=== PATIENT | male | born 1950 | race Caucasian/White ===

== ENCOUNTER 2018-02-24 10:05 | Outpatient (RCR) | payer OTHER ==
[2017-12-14 16:09] LABS: CREATININE SERUM 0.84 MG/DL (0.60-1.30)
== END 2018-03-14 | disposition home or self-care (01) ==
LOC: ONC 10:05
PROVIDERS: ATTEND Radiology Radiation Oncology
DX: Z51.0 Encounter for antineoplastic radiation therapy (principal); C61 Malignant neoplasm of prostate
CPT/HCPCS: 36415; 77300; 77301; 77334; 77336; 77338; 77385; 82565; 84153; 84520; 99204

== ENCOUNTER 2018-04-25 14:03 | Outpatient (RCR) | payer OTHER | END 2018-07-24 | disposition home or self-care (01) | LOC: ONC 14:03 | PROVIDERS: ATTEND Radiology Radiation Oncology | DX: C61 Malignant neoplasm of prostate (principal) | CPT/HCPCS: 36415; 84153; 99213 ==

== ENCOUNTER 2020-05-22 13:48 | Emergency (ER) | payer OTHER ==
[~2020-05-22] VITALS: Ht 175.2 cm; Wt 90.3 kg
--- NOTE | 2020-05-22 14:49 | ED Abdominal Pain ---
General Chief Complaint: Abdominal/GI Problems Stated Complaint: HERNIA Nursing Triage Note: Pt c/o "knot" in abdomen for 1-2 weeks that has worsened over the last 4-5 days. Pt describes pain as "excrutiating." Pt's abdomen reddened and hardened area around prior scar from protate surgery. Sepsis Screen: No Definite Risk History of Present Illness Date Seen by Provider: May 22, 2020 Time Seen by Provider: 13:50 Initial Comments 69 year old male presents for eusebia umbilical pain, at surgical site from prostate surgery, and erythema to abdomen. He was evaluated at the [facility] and referred to the ED. Symptoms began 1-2 weeks ago and has gotten worse over the last few days. No other abdominal surgeries. He denies nausea, vomiting, diarrhea. He's had cardiac catheterization in [place] and stent placement he takes Xarelto. Denies history of DM or respiratory issues. Pain is 2-3 unless the area is palpated, then it is 10. 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 Timing/Duration: 1 Week, Getting Worse Severity/Quality: Moderate Location: Periumbilical Radiation: No Radiation Associated Symptoms: Denies Symptoms Allergies and Home Medications Allergies Coded Allergies: No Known Drug Allergies (Unverified , 05/22/20) Home Medications Cephalexin 500 Mg Tablet, 500 MG PO QID Prescribed by: RAINA OQUENDO on 05/22/20 1612 Tramadol HCl 50 Mg Tablet, 50 MG PO Q6H PRN for PAIN Prescribed by: RAINA OQUENDO on 05/22/20 1613 Patient Home Medication List Home Medication List Reviewed: Yes Review of Systems Review of Systems Constitutional: no symptoms reported, see HPI EENTM: No Symptoms Reported, See HPI Gastrointestinal: See HPI, Abdominal Pain, Other (erythema to eusebia-umbilical area) All Other Systems Reviewed Negative Unless Noted: Yes Past Jcvwrnn-Jsdsnh-Wovvuz Hx Past Med/Social Hx: Reviewed Nursing Past Med/Soc Hx Patient Social History Alcohol Use: Occasionally Uses Alcohol Beverage of Choice: Beer (6-15 daily) Recreational Drug Use: No 2nd Hand Smoke Exposure: No Recent Foreign Travel: No Contact w/Someone Who Travel: No Recent Infectious Disease Expo: No Recent Hopitalizations: No Past Medical History Surgeries: Yes Cardiac, Prostatectomy Respiratory: No Cardiac: Yes (ablasion, stents) Atrial Fibrillation Genitourinary: Yes Prostate Problems Gastrointestinal: No Musculoskeletal: No Endocrine: No HEENT: No Cancer: Yes Prostate Did You Recieve Any Treatments: Yes What Type of Treatment Did You: Radiation, Surgical Intervention Psychosocial: No Integumentary: No Physical Exam Vital Signs Vital Signs - First Documented 05/22/20 13:50 Temp 36.5 Pulse 74 Resp 20 B/P (MAP) 126/84 (98) Pulse Ox 97 O2 Delivery Room Air Capillary Refill : Less Than 3 Seconds Height/Weight/BMI Height: '" Weight: lbs. oz. kg; 29.00 BMI Method: General Appearance: WD/WN, no apparent distress HEENT: PERRL/EOMI, normal ENT inspection, TMs normal, pharynx normal Neck: non-tender, full range of motion, supple, normal inspection Respiratory: chest non-tender, lungs clear, normal breath sounds Cardiovascular: normal peripheral pulses, regular rate, rhythm, no murmur Gastrointestinal: normal bowel sounds, soft; No distended; tenderness (at incision site, periumbilical. No obvious hernia. ); No hernia; mass (at incision site) Extremities: normal range of motion, non-tender, normal inspection, no pedal edema, normal capillary refill Neurologic/Psychiatric: no motor/sensory deficits, alert, normal mood/affect, oriented x 3 Skin: warm/dry, other (erythema, abdomen) Lymphatic: no adenopathy Progress/Results/Core Measures Results/Orders Lab Results Laboratory Tests Test 05/22/20 14:25 Range/Units White Blood Count 7.1 4.3-11.0 10^3/uL Red Blood Count 4.44 4.35-5.85 10^6/uL Hemoglobin 12.7 L 13.3-17.7 G/DL Hematocrit 39 L 40-54 % Mean Corpuscular Volume 88 80-99 FL Mean Corpuscular Hemoglobin 29 25-34 PG Mean Corpuscular Hemoglobin Concent 33 32-36 G/DL Red Cell Distribution Width 13.7 10.0-14.5 % Platelet Count 213 130-400 10^3/uL Mean Platelet Volume 9.8 7.4-10.4 FL Neutrophils (%) (Auto) 71 42-75 % Lymphocytes (%) (Auto) 17 12-44 % Monocytes (%) (Auto) 10 0-12 % Eosinophils (%) (Auto) 2 0-10 % Basophils (%) (Auto) 0 0-10 % Neutrophils # (Auto) 5.1 1.8-7.8 X 10^3 Lymphocytes # (Auto) 1.2 1.0-4.0 X 10^3 Monocytes # (Auto) 0.7 0.0-1.0 X 10^3 Eosinophils # (Auto) 0.1 0.0-0.3 10^3/uL Basophils # (Auto) 0.0 0.0-0.1 10^3/uL Prothrombin Time 13.6 12.2-14.7 SEC INR Comment 1.0 0.8-1.4 Activated Partial Thromboplast Time 32 24-35 SEC Urine Color ORANGE Urine Clarity CLEAR Urine pH 5.0 5-9 Urine Specific Valliant >=1.030 1.016-1.022 Urine Protein NEGATIVE NEGATIVE Urine Glucose (UA) NEGATIVE NEGATIVE Urine Ketones NEGATIVE NEGATIVE Urine Nitrite NEGATIVE NEGATIVE Urine Bilirubin NEGATIVE NEGATIVE Urine Urobilinogen 0.2 < = 1.0 MG/DL Urine Leukocyte Esterase NEGATIVE NEGATIVE Urine RBC (Auto) NEGATIVE NEGATIVE Urine RBC NONE /HPF Urine WBC RARE /HPF Urine Squamous Epithelial Cells 0-2 /HPF Urine Crystals PRESENT H /LPF Urine Amorphous Sediment RARE TIFFANIE URATES H /LPF Urine Bacteria NEGATIVE /HPF Urine Casts NONE /LPF Urine Mucus MODERATE H /LPF Urine Culture Indicated NO Sodium Level 139 135-145 MMOL/L Potassium Level 4.1 3.6-5.0 MMOL/L Chloride Level 107 98-107 MMOL/L Carbon Dioxide Level 23 21-32 MMOL/L Anion Gap 9 5-14 MMOL/L Blood Urea Nitrogen 9 7-18 MG/DL Creatinine 0.80 0.60-1.30 MG/DL Estimat Glomerular Filtration Rate > 60 BUN/Creatinine Ratio 11 Glucose Level 90 70-105 MG/DL Calcium Level 8.9 8.5-10.1 MG/DL Corrected Calcium 8.9 8.5-10.1 MG/DL Total Bilirubin 0.9 0.1-1.0 MG/DL Aspartate Amino Transf (AST/SGOT) 17 5-34 U/L Alanine Aminotransferase (ALT/SGPT) 17 0-55 U/L Alkaline Phosphatase 53 40-136 U/L C-Reactive Protein High Sensitivity 6.41 H 0.00-0.50 MG/DL Total Protein 6.9 6.4-8.2 GM/DL Albumin 4.0 3.2-4.5 GM/DL Amylase Level 40 25-125 U/L My Orders Orders - AZRARAINA Ct Abdomen/Pelvis W (05/22/20 14:30) Amylase (05/22/20 14:30) Cbc With Automated Diff (05/22/20 14:30) Comprehensive Metabolic Panel (05/22/20 14:30) Hs C Reactive Protein (05/22/20 14:30) Protime With Inr (05/22/20 14:30) Partial Thromboplastin Time (05/22/20 14:30) Ua Culture If Indicated (05/22/20 14:30) Iohexol Injection (Omnipaque 350 Mg/Ml 1 (05/22/20 15:15) Received Contrast (Hold Metformin- Contr (05/22/20 15:15) Sodium Chloride Flush (Catheter Flush Sy (05/22/20 15:15) Ns (Ivpb) (Sodium Chloride 0.9% Ivpb Bag (05/22/20 15:15) Ekg Tracing (05/22/20 15:51) Morphine Injection (Morphine Injection (05/22/20 15:51) Ondansetron Injection (Zofran Injectio (05/22/20 16:00) Medications Given in ED Current Medications Medications Dose Ordered Sig/Jenifer Route Start Time Stop Time Status Last Admin Dose Admin Iohexol 100 ml ONCE ONCE IV 05/22/20 15:15 05/22/20 15:16 DC 05/22/20 15:39 100 ML Sodium Chloride 10 ml NEEDED PRN IV 05/22/20 15:15 05/22/20 16:27 DC 05/22/20 15:39 10 ML Sodium Chloride 100 ml ONCE ONCE IV 05/22/20 15:15 05/22/20 15:16 DC 05/22/20 15:39 80 ML Vital Signs/I&O 05/22/20 05/22/20 13:50 16:21 Temp 36.5 36.5 Pulse 74 77 Resp 20 20 B/P (MAP) 126/84 (98) 146/99 (98) Pulse Ox 97 98 O2 Delivery Room Air Room Air Blood Pressure Mean: 98 Progress Progress Note : Time: 13:50 Progress Note Patient seen and evaluated, will obtain labs and then plan CT of abdomen with contrast. [address] Arellano, will plan to address cellulitis and then he will follow-up Hernia repair. 1535 discharge instructions and return precautions reviewed with patient and all questions answered. Diagnostic Imaging Diagonstic Imaging: CT Plain Films/CT/US/NM/MRI: abdomen, pelvis Comments NAME: MAR[facility] REC#: [id number] PT STATUS: REG ER : 1950 PHYSICIAN: RAINA OQUENDO ADMIT DATE: 05/22/20/ER Signed Date of Exam:05/22/20 CT ABDOMEN/PELVIS W EXAMINATION: CT Abdomen and Pelvis with intravenous contrast. TECHNIQUE: Multiple contiguous axial images were obtained through the abdomen and pelvis after the uneventful administration of intravenous contrast. All CT scans use one or more of the following dose optimizing techniques: automated exposure control, MA and/or KvP adjustment based on a patient size and exam type, or iterative reconstruction. HISTORY: Knot in the umbilical area for one to two weeks. Redness and pain. COMPARISON: None available. FINDINGS: The heart size is enlarged. Dependent atelectasis is seen in the lung bases. Two periumbilical hernias are visualized on either side of the midline of the abdomen. Fat-containing periumbilical hernia on the left demonstrates internal and surrounding inflammatory changes, which may represent mesenteric ischemia. The right paracentral fat-containing umbilical hernia does not contain inflammatory changes. No loops of bowel are seen within these hernia sacs. The liver, spleen, pancreas, adrenal glands, and kidneys have a normal appearance. There is no pathologically enlarged mesenteric or retroperitoneal adenopathy. The bowel loops are nondilated. The appendix is visualized in the right lower quadrant and has a normal appearance. There is no free fluid or free air. No acute osseous abnormalities. Left total hip arthroplasty is seen. There is calcified aortic and iliac atherosclerotic plaque without aneurysm. The urinary bladder is nondistended. There is no free air, loculated collection, or adenopathy in the pelvis. IMPRESSION: 1. Left paracentral periumbilical hernia with internal and surrounding inflammatory changes, likely representing mesenteric ischemia. No entrapped loops of bowel are seen within this hernia sac. A second periumbilical hernia is seen right of midline without associated inflammatory changes. 2. Cardiomegaly. Dictated by: Dictated on workstation # [id number] Dict: 05/22/20 1544 Trans: 05/22/20 1555 [id number] Interpreted by: ELMER ROBBINS DO Electronically signed by: ELMER ROBBINS DO 05/22/20 1555 Reviewed: Reviewed by Me, Reviewed/Discussed (with Dr. Arellano) Departure Impression Primary Impression: Cellulitis of abdominal wall Additional Impressions: Abdominal wall pain Hernia of anterior abdominal wall Disposition: HOME, SELF-CARE Condition: Improved Departure-Patient Inst. Decision time for Depature: 15:35 Referrals: TAMERA SHANKAR (PCP) Primary Care Physician ABHISHEK ARELLANO DO Patient Instructions: Abdominal Hernia (DC), Cellulitis (Skin Infection), Adult (DC) Add. Discharge Instructions: Activity and diet as tolerated. See Dr. Arellano at 2:00 May 27. Take antibiotic, as prescribed. Use Tylenol for pain or prescription medicine, as prescribed. Call Dr. Arellano, if symptoms worsen. If weekends or evenings, return to ER. Return to the emergency department for any new, urgent health care needs. All discharge instructions reviewed with patient and/or family. Voiced understanding. Scripts Tramadol HCl (Tramadol HCl) 50 Mg Tablet 50 MG PO Q6H PRN for PAIN, #15 TAB 0 Refills Prov: RAINA OQUENDO 05/22/20 Cephalexin (Cephalexin) 500 Mg Tablet 500 MG PO QID, #8 TAB 0 Refills Prov: RAINA OQUENDO 05/22/20 Copy Copies To 1: ABHISHEK ARELLANO AMY ARNP May 22, 2020 14:49
[2020-05-22 14:52] LABS: BASOPHILS % (AUTO) 0 % (0-10); EOSINOPHILS # (AUTO) 0.1 10^3/uL (0.0-0.3); EOSINOPHILS % (AUTO) 2 % (0-10); HEMATOCRIT 39 % (40-54); HEMOGLOBIN 12.7 G/DL (13.3-17.7); LYMPHOCYTES # (AUTO) 1.2 X 10^3 (1.0-4.0); LYMPHOCYTES % (AUTO) 17 % (12-44); MEAN CORPUSCULAR HEMOGLOBIN 29 PG (25-34); MEAN CORPUSCULAR HGB CONC 33 G/DL (32-36); MEAN CORPUSCULAR VOLUME 88 FL (80-99); MEAN PLATELET VOLUME 9.8 FL (7.4-10.4); MONOCYTES # (AUTO) 0.7 X 10^3 (0.0-1.0); MONOCYTES % (AUTO) 10 % (0-12); NEUTROPHILS # (AUTO) 5.1 X 10^3 (1.8-7.8); NEUTROPHILS % (AUTO) 71 % (42-75); PLATELET COUNT 213 10^3/uL (130-400); RED CELL DISTRIBUTION WIDTH 13.7 % (10.0-14.5); WHITE BLOOD COUNT 7.1 10^3/uL (4.3-11.0)
[2020-05-22 14:56] LABS: CHLORIDE 107 MMOL/L (98-107); POTASSIUM 4.1 MMOL/L (3.6-5.0); SODIUM 139 MMOL/L (135-145)
[2020-05-22 14:57] LABS: AMYLASE 40 U/L (25-125)
[2020-05-22 14:58] LABS: CALCIUM 8.9 MG/DL (8.5-10.1)
[2020-05-22 14:59] LABS: BILIRUBIN,URINE NEGATIVE (NEGATIVE); CLARITY,URINE CLEAR; COLOR,URINE ORANGE; GLUCOSE 90 MG/DL (70-105); GLUCOSE, URINE (UA) NEGATIVE (NEGATIVE); KETONES,URINE NEGATIVE (NEGATIVE); LEUKOCYTE ESTERASE ,URINE NEGATIVE (NEGATIVE); NITRITE,URINE NEGATIVE (NEGATIVE); PROTEIN,URINE NEGATIVE (NEGATIVE); TOTAL PROTEIN 6.9 GM/DL (6.4-8.2)
[2020-05-22 15:00] LABS: CARBON DIOXIDE 23 MMOL/L (21-32)
[2020-05-22 15:01] LABS: BILIRUBIN,TOTAL 0.9 MG/DL (0.1-1.0)
[2020-05-22 15:02] LABS: ALKALINE PHOSPHATASE 53 U/L (40-136)
[2020-05-22 15:03] LABS: GFR ESTIMATED > 60
[2020-05-22 15:04] LABS: BUN/CREATININE RATIO 11
[2020-05-22 15:05] LABS: ALANINE AMINOTRANSFERASE 17 U/L (0-55); PROTHROMBIN TIME PATIENT 13.6 SEC (12.2-14.7)
[2020-05-22] MEDS ORDERED: NS 100 ML (IVPB) BAG IV ONE (15:15)
[2020-05-22] MEDS ORDERED: HOLD METFORMIN - RECEIVED CONTRAST 20 ML VIAL IV SCH (15:15)
[2020-05-22] MEDS ORDERED: CATHETER FLUSH 10 ML SYR IV PRN (15:15)
[2020-05-22] MEDS ORDERED: IOHEXOL 350 MG/ML 100 ML (OMNIPAQUE 350) VIAL IV ONE (15:15)
--- NOTE | 2020-05-22 15:17 | NUR ---
Pt sleeping comfortably in bed at this time.
[2020-05-22 15:26] LABS: AMORPHOUS SEDIMENT,UR RARE AMOR URATES /LPF; BACTERIA,URINE NEGATIVE /HPF; SQUAMOUS EPITHELIAL CELL,UR 0-2 /HPF; WBC,URINE RARE /HPF
[2020-05-22] MEDS ORDERED: morphine INJ 10 MG/ML 1ML (SYR OR VIAL) IVP STA (15:51)
--- NOTE | 2020-05-22 15:52 | Diagnostic Imaging Report ---
EXAMINATION: CT Abdomen and Pelvis with intravenous contrast. TECHNIQUE: Multiple contiguous axial images were obtained through the abdomen and pelvis after the uneventful administration of intravenous contrast. All CT scans use one or more of the following dose optimizing techniques: automated exposure control, MA and/or KvP adjustment based on a patient size and exam type, or iterative reconstruction. HISTORY: Knot in the umbilical area for one to two weeks. Redness and pain. COMPARISON: None available. FINDINGS: The heart size is enlarged. Dependent atelectasis is seen in the lung bases. Two periumbilical hernias are visualized on either side of the midline of the abdomen. Fat-containing periumbilical hernia on the left demonstrates internal and surrounding inflammatory changes, which may represent mesenteric ischemia. The right paracentral fat-containing umbilical hernia does not contain inflammatory changes. No loops of bowel are seen within these hernia sacs. The liver, spleen, pancreas, adrenal glands, and kidneys have a normal appearance. There is no pathologically enlarged mesenteric or retroperitoneal adenopathy. The bowel loops are nondilated. The appendix is visualized in the right lower quadrant and has a normal appearance. There is no free fluid or free air. No acute osseous abnormalities. Left total hip arthroplasty is seen. There is calcified aortic and iliac atherosclerotic plaque without aneurysm. The urinary bladder is nondistended. There is no free air, loculated collection, or adenopathy in the pelvis. IMPRESSION: 1. Left paracentral periumbilical hernia with internal and surrounding inflammatory changes, likely representing mesenteric ischemia. No entrapped loops of bowel are seen within this hernia sac. A second periumbilical hernia is seen right of midline without associated inflammatory changes. 2. Cardiomegaly. Dictated by: Dictated on workstation # [id number]
[2020-05-22] MEDS ORDERED: ONDANSETRON 4 MG/2 ML (SDV) Z0FRAN IVP ONE (16:00)
[2020-05-22] MEDS ORDERED: CEPH500T PO (16:12)
[2020-05-22] MEDS ORDERED: TRM50T PO (16:12)
[2020-05-22 16:21] VITALS: BP 146/99
== END 2020-05-22 16:21 | disposition home or self-care (01) ==
LOC: EDUNIT# 13:48 → ER 13:49
DX: L03.311 Cellulitis of abdominal wall (principal); K42.9 Umbilical hernia without obstruction or gangrene; I48.91 Unspecified atrial fibrillation; Z95.5 Presence of coronary angioplasty implant and graft; Z79.01 Long term (current) use of anticoagulants; Z85.46 Personal history of malignant neoplasm of prostate
CPT/HCPCS: 36415; 74177; 80053; 81000; 82150; 85025; 85610; 85730; 86141

== ENCOUNTER 2020-10-20 05:34 | Outpatient (RCR) | payer OTHER ==
[~2020-10-20] VITALS: Ht 175.3 cm; Wt 92.3 kg
[~2020-10-20 05:34] MED LIST changes: -FAMO-119 PO
[2020-10-21] MEDS ORDERED: FAMO-119 PO (14:58)
== END 2020-10-20 09:56 | disposition home or self-care (01) ==
LOC: PREOP 05:34
PROVIDERS: ATTEND Surgery
DX: Z01.818 Encounter for other preprocedural examination (principal)

== ENCOUNTER → 2020-10-20 | Outpatient (CLI) | payer OTHER ==
[~2020-10-20] MED LIST: ASPI-999 PO; ATOR40TA70 PO; CARV25TA PO; CEPH500T PO; CITA40TA11 PO; DRON400T2 PO; FAMO-119 PO; FOLI1TAB24 PO; LEVO75CA5 PO; MULT-1104 PO; NF-METHI10 PO; OMG1KC PO; PANT40TA52 PO; PRAZ1CAP2 PO; RIVA20TA PO; THIA100T68 PO; TRM50T PO
== END ==
LOC: LAB FS 10:50
PROVIDERS: ATTEND Surgery
DX: Z01.812 Encounter for preprocedural laboratory examination (principal); Z20.828 Contact with and (suspected) exposure to other viral communicable diseases
CPT/HCPCS: 87635

== ENCOUNTER 2020-10-21 13:51 | Emergency (ER) | payer OTHER ==
[~2020-10-21] VITALS: Ht 175.3 cm; Wt 92.5 kg
--- NOTE | 2020-10-21 14:18 | Diagnostic Imaging Report ---
INDICATION: Chest pain. FINDINGS: Lungs are clear. No infiltrate, effusion, or pneumothorax. IMPRESSION: No acute-appearing abnormality. Dictated by: Dictated on workstation # [id number]
[2020-10-21] MEDS ORDERED: ASPIRIN 81 MG CHEW (CHILDREN'S ASA) ONE (14:20)
[2020-10-21] MEDS ORDERED: FAMOTIDINE 20MG/2ML IV (PEPCID) ONE (14:21)
--- NOTE | 2020-10-21 14:21 | ED Cardiac General ---
History of Present Illness General Chief Complaint: Chest Pain Stated Complaint: CHEST PAIN;SOB Nursing Triage Note: Patient reports sternal/substernal chest pain for 5 days. He describes the pain as burning, rates his pain 4/10 right now at rest, 8/10 at the worst. He reports he has had two previous heart attacks, states his first heart attack felt very similar to the pain he is having now. He states he took antacids at home which did not relieve his pain. He states he had stents placed with his previous heart attacks. History of Present Illness Date Seen by Provider: Oct 21, 2020 Time Seen by Provider: 14:10 Initial Comments 69-year-old male presents with chest pain described as burning in the lower center of his chest for the past 5 days continuously. States he has a history of coronary artery disease with 2 stents (performed at [facility]), last one has been a couple years ago. He states that this feels like the pain that he had when he had a heart attack, however he has not taken the nitroglycerin. He also has a history of GERD for which he takes "when necessary" Protonix, but this is not provided him any relief. Denies any recent illness, cough, fever or chills. Intermittent shortness of air with exertion. Chest burning sensation is worse with activities and also worse when laying down at night. Has not taken an aspirin today. Asked him why....if he thought this was similar burning to when he had a heart attack in the past he chose not to: 1- take his nitroglycerin or 2- seek emergent care. He states, "because I just thought it would go away" Allergies and Home Medications Allergies Coded Allergies: No Known Drug Allergies (Unverified , 05/22/20) Home Medications Aspirin 81 Mg Tab.chew, 81 MG PO DAILY, (Reported) Atorvastatin Calcium 40 Mg Tablet, 20 MG PO HS, (Reported) Carvedilol 25 Mg Tablet, 12.5 MG PO BID, (Reported) Citalopram Hydrobromide 40 Mg Tablet, 40 MG PO DAILY, (Reported) Dronedarone HCl 400 Mg Tablet, 400 MG PO DAILY, (Reported) Famotidine 20 Mg Tablet, 20 MG PO qhs Prescribed by: MARCELLUS APARICIO on 10/21/20 1458 Folic Acid 1 Mg Tablet, 1 MG PO DAILY, (Reported) Levothyroxine Sodium Unknown Strength Capsule, 0.5 TAB PO DAILY, (Reported) Methimazole 10 Mg Tab, 10 MG PO DAILY, (Reported) Multivit-Min/Folic/Vit K/Lycop 1 Each Tablet, 1 EACH PO DAILY, (Reported) Nutley 3 Polyunsat Fatty Acids 1,000 Mg Cap, 1,000 MG PO DAILY, (Reported) Pantoprazole Sodium 40 Mg Tablet.dr, 40 MG PO DAILY, (Reported) Prazosin HCl 1 Mg Capsule, 1 MG PO TID, (Reported) Rivaroxaban 20 Mg Tablet, 20 MG PO DAILY@1800, (Reported) Thiamine Mononitrate 100 Mg Tablet, 100 MG PO DAILY, (Reported) Patient Home Medication List Home Medication List Reviewed: Yes Review of Systems Review of Systems Constitutional: No fever, No malaise, No weakness EENTM: No Symptoms Reported Respiratory: Denies Cough; SOA With Exertion; Denies SOA at Rest Cardiovascular: Chest Pain ("Burning"); Denies Edema, Denies Lightheadedness, Denies Palpitations, Denies Syncope Gastrointestinal: Denies Abdomen Distended, Denies Abdominal Pain, Denies Diarr hea, Denies Nausea, Denies Poor Appetite, Denies Vomiting Musculoskeletal: No back pain, No joint pain Skin: No change in color, No lesions, No rash Psychiatric/Neurological: Denies Headache, Denies Numbness, Denies Paresthesia Past Ilgdkzc-Gefhjp-Ptrnmv Hx Past Med/Social Hx: Reviewed Nursing Past Med/Soc Hx Patient Social History Alcohol Use: Denies Use Number of Drinks Today: AA Alcohol Beverage of Choice: Beer Recreational Drug Use: No Smoking Status: Never a Smoker 2nd Hand Smoke Exposure: No Recent Foreign Travel: No Contact w/Someone Who Travel: No Recent Infectious Disease Expo: No Recent Hopitalizations: No Physical Abuse: No Sexual Abuse: No Mistreated: No Fear: No Seasonal Allergies Seasonal Allergies: No Past Medical History Surgeries: Yes (stents x3, heart ablation, L total hip) Cardiac, Prostatectomy Respiratory: No Cardiac: Yes (ablasion, stents) Atrial Fibrillation, Hypertension Neurological: No Genitourinary: Yes Prostate Problems Gastrointestinal: Yes Abdominal Hernia Musculoskeletal: No Endocrine: Yes Hypothyroidsim HEENT: No Cancer: Yes Prostate Did You Recieve Any Treatments: Yes What Type of Treatment Did You: Radiation, Surgical Intervention Psychosocial: No Integumentary: No Blood Disorders: No Physical Exam Vital Signs Vital Signs - First Documented 10/21/20 13:58 Temp 37.3 Pulse 87 Resp 19 B/P (MAP) 135/71 (92) Pulse Ox 96 O2 Delivery Room Air Capillary Refill : Less Than 3 Seconds Height, Weight, BMI Height: '" Weight: lbs. oz. kg; 30.00 BMI Method: General Appearance: No Apparent Distress, WD/WN HEENT: PERRL/EOMI, Normal ENT Inspection Neck: Normal Inspection, Non Tender, Supple Respiratory: Chest Non Tender, Lungs Clear, Normal Breath Sounds, No Accessory Muscle Use, No Respiratory Distress Cardiovascular: Regular Rate, Rhythm, No Edema, No Gallop, No JVD, No Murmur, Normal Peripheral Pulses Gastrointestinal: Normal Bowel Sounds, No Organomegaly, No Pulsatile Mass, Non Tender, Soft Extremity: Normal Capillary Refill, Normal Inspection, Normal Range of Motion, Non Tender Neurologic/Psychiatric: Alert, Oriented x3, No Motor/Sensory Deficits, Normal Mood/Affect Skin: Normal Color, Warm/Dry Progress/Results/Core Measures Results/Orders Lab Results Laboratory Tests Test 10/21/20 13:55 Range/Units White Blood Count 5.6 4.3-11.0 10^3/uL Red Blood Count 2.46 L 4.35-5.85 10^6/uL Hemoglobin 7.1 L 13.3-17.7 G/DL Hematocrit 22 L 40-54 % Mean Corpuscular Volume 89 80-99 FL Mean Corpuscular Hemoglobin 29 25-34 PG Mean Corpuscular Hemoglobin Concent 32 32-36 G/DL Red Cell Distribution Width 15.0 H 10.0-14.5 % Platelet Count 225 130-400 10^3/uL Mean Platelet Volume 9.8 7.4-10.4 FL Immature Granulocyte % (Auto) 0 % Neutrophils (%) (Auto) 71 42-75 % Lymphocytes (%) (Auto) 19 12-44 % Monocytes (%) (Auto) 8 0-12 % Eosinophils (%) (Auto) 2 0-10 % Basophils (%) (Auto) 0 0-10 % Neutrophils # (Auto) 4.0 1.8-7.8 X 10^3 Lymphocytes # (Auto) 1.0 1.0-4.0 X 10^3 Monocytes # (Auto) 0.4 0.0-1.0 X 10^3 Eosinophils # (Auto) 0.1 0.0-0.3 10^3/uL Basophils # (Auto) 0.0 0.0-0.1 10^3/uL Immature Granulocyte # (Auto) 0.0 0.0-0.1 10^3/uL Sodium Level 142 135-145 MMOL/L Potassium Level 4.1 3.6-5.0 MMOL/L Chloride Level 110 H 98-107 MMOL/L Carbon Dioxide Level 21 21-32 MMOL/L Anion Gap 11 5-14 MMOL/L Blood Urea Nitrogen 10 7-18 MG/DL Creatinine 0.87 0.60-1.30 MG/DL Estimat Glomerular Filtration Rate > 60 BUN/Creatinine Ratio 11 Glucose Level 100 70-105 MG/DL Calcium Level 8.4 L 8.5-10.1 MG/DL Corrected Calcium 8.6 8.5-10.1 MG/DL Total Bilirubin 0.4 0.1-1.0 MG/DL Aspartate Amino Transf (AST/SGOT) 19 5-34 U/L Alanine Aminotransferase (ALT/SGPT) 20 0-55 U/L Alkaline Phosphatase 48 40-136 U/L Troponin I < 0.30 <0.30 NG/ML Total Protein 6.1 L 6.4-8.2 GM/DL Albumin 3.8 3.2-4.5 GM/DL My Orders Orders - ROVENSTINE,MARCELLUS L DO Ed Iv/Invasive Line Start (10/21/20 13:59) Chest 1 View Ap/Pa Only (10/21/20 13:59) Ekg Tracing (10/21/20 13:59) Troponin I Fs (10/21/20 13:59) Cbc With Automated Diff (10/21/20 13:59) Comprehensive Metabolic Panel (10/21/20 13:59) Aspirin Chewable Tablet (Baby Aspirin Ch (10/21/20 14:30) Famotidine Injection (Pepcid Injection) (10/21/20 14:30) Aspirin Chewable Tablet (Baby Aspirin Ch (10/21/20 14:20) Famotidine Injection (Pepcid Injection) (10/21/20 14:21) Lidocaine 2% Viscous 15 Ml (Xylocaine Vi (10/21/20 15:00) Antacid Suspension (Mylanta Suspension (10/21/20 15:00) Medications Given in ED Current Medications Medications Dose Ordered Sig/Jenifer Route Start Time Stop Time Status Last Admin Dose Admin Al Hydrox/Mg Hydrox/Simethicone 30 ml ONCE ONCE PO 10/21/20 15:00 10/21/20 15:01 DC 10/21/20 15:01 30 ML Aspirin 324 mg ONCE ONCE PO 10/21/20 14:30 10/21/20 14:36 DC 10/21/20 14:26 324 MG Famotidine 20 mg ONCE ONCE IVP 10/21/20 14:30 10/21/20 14:36 DC 10/21/20 14:25 20 MG Lidocaine HCl 5 ml ONCE ONCE PO 10/21/20 15:00 10/21/20 15:01 DC 10/21/20 15:01 5 ML Vital Signs/I&O 10/21/20 13:58 Temp 37.3 Pulse 87 Resp 19 B/P (MAP) 135/71 (92) Pulse Ox 96 O2 Delivery Room Air Blood Pressure Mean: 92 Initial ECG Impression Date: Oct 21, 2020 Initial ECG Impression Time: 15:00 Initial ECG Rate: 80 Initial ECG Rhythm: Normal Sinus Initial ECG Intervals: Normal Initial ECG Impression: Normal, Nonspecific Changes Initial ECG Comparisson: No Previous ECG Available Comment no acute changes Diagnostic Imaging Diagonstic Imaging: Xray Comments Date of Exam:10/21/20 CHEST 1 VIEW AP/PA ONLY INDICATION: Chest pain. FINDINGS: Lungs are clear. No infiltrate, effusion, or pneumothorax. IMPRESSION: No acute-appearing abnormality. Dictated on workstation # [id number] Dict: 10/21/20 1416 Trans: 10/21/20 1418 [id number] Interpreted by: TERRANCE BAILEY Electronically signed by: Departure Impression Primary Impression: Chest pain Qualified Codes: R07.9 - Chest pain, unspecified Additional Impression: GERD (gastroesophageal reflux disease) Qualified Codes: K21.9 - Gastro-esophageal reflux disease without esophagiti s Disposition: HOME, SELF-CARE Condition: Improved Departure-Patient Inst. Decision time for Depature: 14:56 Referrals: TAMERA SHANKAR (PCP) Primary Care Physician Patient Instructions: Chest Pain (DC), Acid Reflux, Adult and Adolescent ED Add. Discharge Instructions: Call your primary doctor to arrange for a follow up evaluation in 2 to 3 days, ER sooner if worse. You are advised to cut down on your alcohol intake. Take your Protonix every morning before breakfast and start the prescription for Pepcid at bedtime. All discharge instructions reviewed with patient and/or family. Voiced understanding. Scripts Famotidine (Pepcid) 20 Mg Tablet 20 MG PO qhs, #30 TAB Prov: MARCELLUS APARICIO DO 10/21/20 MARCELLUS APARICIO DO Oct 21, 2020 14:21
[2020-10-21] MEDS ORDERED: FAMOTIDINE 20MG/2ML IV (PEPCID) IVP ONE (14:30)
[2020-10-21] MEDS ORDERED: ASPIRIN 81 MG CHEW (CHILDREN'S ASA) PO ONE (14:30)
[2020-10-21 14:40] LABS: CHLORIDE 110 MMOL/L (98-107); POTASSIUM 4.1 MMOL/L (3.6-5.0); SODIUM 142 MMOL/L (135-145)
[2020-10-21 14:41] LABS: ALANINE AMINOTRANSFERASE 20 U/L (0-55); ALBUMIN 3.8 GM/DL (3.2-4.5); ALKALINE PHOSPHATASE 48 U/L (40-136); BILIRUBIN,TOTAL 0.4 MG/DL (0.1-1.0); BUN/CREATININE RATIO 11; CALCIUM 8.4 MG/DL (8.5-10.1); CARBON DIOXIDE 21 MMOL/L (21-32); CREATININE SERUM 0.87 MG/DL (0.60-1.30); GFR ESTIMATED > 60; GLUCOSE 100 MG/DL (70-105); TOTAL PROTEIN 6.1 GM/DL (6.4-8.2)
[2020-10-21 14:42] LABS: BASOPHILS % (AUTO) 0 % (0-10); EOSINOPHILS # (AUTO) 0.1 10^3/uL (0.0-0.3); EOSINOPHILS % (AUTO) 2 % (0-10); HEMATOCRIT 22 % (40-54); HEMOGLOBIN 7.1 G/DL (13.3-17.7); LYMPHOCYTES % (AUTO) 19 % (12-44); MEAN CORPUSCULAR HEMOGLOBIN 29 PG (25-34); MEAN CORPUSCULAR HGB CONC 32 G/DL (32-36); MEAN CORPUSCULAR VOLUME 89 FL (80-99); MEAN PLATELET VOLUME 9.8 FL (7.4-10.4); MONOCYTES # (AUTO) 0.4 X 10^3 (0.0-1.0); MONOCYTES % (AUTO) 8 % (0-12); NEUTROPHILS % (AUTO) 71 % (42-75); PLATELET COUNT 225 10^3/uL (130-400); WHITE BLOOD COUNT 5.6 10^3/uL (4.3-11.0)
[2020-10-21] MEDS ORDERED: FAMO-119 PO (14:58)
[2020-10-21] MEDS ORDERED: LIDOCAINE 2% VISCOUS 15 ML UDC PO ONE (15:00)
[2020-10-21] MEDS ORDERED: ANTACID SUSP 30 ML UDC (MYLANTA) PO ONE (15:00)
[2020-10-21 15:20] VITALS: BP 113/85
== END 2020-10-21 15:05 | disposition home or self-care (01) ==
LOC: EDUNIT# 13:51 → ER FS 13:53
DX: K21.9 Gastro-esophageal reflux disease without esophagitis (principal); I10 Essential (primary) hypertension; I25.10 Atherosclerotic heart disease of native coronary artery without angina pectoris; I25.2 Old myocardial infarction; I48.91 Unspecified atrial fibrillation; E03.9 Hypothyroidism, unspecified; Z86.79 Personal history of other diseases of the circulatory system; Z95.5 Presence of coronary angioplasty implant and graft; Z87.438 Personal history of other diseases of male genital organs; Z87.19 Personal history of other diseases of the digestive system; Z79.82 Long term (current) use of aspirin; Z79.890 Hormone replacement therapy; Z79.01 Long term (current) use of anticoagulants
CPT/HCPCS: 36415; 71045; 80053; 84484; 85025; 93005

== ENCOUNTER 2021-01-05 07:03 | Outpatient (RCR) | payer OTHER ==
[~2021-01-05] VITALS: Ht 175.3 cm; Wt 95.3 kg
[~2021-01-05 07:03] MED LIST changes: +FAMO-119 PO; -FOLI1TAB24 PO; +FOLI1TAB33 PO
== END 2021-01-08 14:49 | disposition home or self-care (01) ==
LOC: PREOP 07:03
PROVIDERS: ATTEND Surgery
DX: Z01.818 Encounter for other preprocedural examination (principal)

== ENCOUNTER → 2021-01-09 | Outpatient (CLI) | payer OTHER | LOC: LAB FS 10:20 | PROVIDERS: ATTEND Surgery | DX: Z01.812 Encounter for preprocedural laboratory examination (principal); K29.71 Gastritis, unspecified, with bleeding; Z20.822 Contact with and (suspected) exposure to COVID-19 | CPT/HCPCS: 87635 ==

== ENCOUNTER → 2021-01-12 | Day surgery (SDC) | payer OTHER ==
[~2021-01-12] VITALS: Ht 175.3 cm; Wt 95.3 kg
[2021-01-12] VITALS (7 sets, daily range): BP systolic 112–149; BP diastolic 69–92
[~2021-01-12] MED LIST changes: +ESMOLOL 100 MG/10 ML (BREVIBLOC) VIAL ONE; +HURRICAINE EXT TUBE (BENZOCAINE) XX PRN; +LACTATED RINGERS 1,000 ML IV ONE; +LACTATED RINGERS 1,000 ML IV STA; +MIDAZOLAM 2 MG/2 ML (VERSED) VIAL ONE; +PROPOFOL INJECTION 50 ML IV ONE
--- NOTE | 2021-01-12 11:02 | Progress Note-Pre Operative ---
Pre-Operative Progress Note H&P Reviewed The H&P was reviewed, patient examined and no changes noted. Time Seen by Provider: 11:00 Date H&P Reviewed: Jan 12, 2021 Time H&P Reviewed: 11:01 Pre-Operative Diagnosis: rectal bleed, gastritis ABHISHEK ARELLANO DO Jan 12, 2021 11:02
--- NOTE | 2021-01-12 12:05 | Progress Note-Post Operative ---
Post-Operative Progess Note Surgeon (s)/Return Agent (s) Surgeon ABHISHEK ARELLANO DO Return Agent: BRE Figueroa Pre-Operative Diagnosis rectal bleed, gastritis Post-Operative Diagnosis gastritis esophagitis Diverticula int hemorrhoids Procedure & Operative Findings Date of Procedure 01/12/21 Procedure Performed/Findings EGD with bx Colonoscopy Anesthesia Type IV sedation by PHYSICIAN ASSISTANT CERTIFIED Estimated Blood Loss Estimated blood loss (mL): scant Specimens/Packing Specimens Removed antral bx body of stomach bx GE jxn bx ABHISHEK ARELLANO DO Jan 12, 2021 12:05
--- NOTE | 2021-01-12 12:06 | Endoscopy Discharge Instruct ---
Endo Procedure/Findings Findings 1.: Gastritis 2.: Other Findings (Esophagitis) 3.: Diverticulosis 4.: Internal Hemorrhoids Discharge Instructions - Activity: You might feel a little sleepy until tomorrow. This is due to the medicine you received to relax you. Until tomorrow, you should: NOT drive a car, operate machinery or power tools. NOT drink any alcoholic beverages. NOT make any important decisions or sign importortant papers. Do not return to work until tomorrow, unless otherwise instructed. Resume previous activities tomorrow. Diet: Start by taking liquids. If you tolerate liquids, advance to solid food. 1.: Colonscopy in 10 years 2.: EGD in 1 year Notify Physician - If you experience excessive bleeding, unusual abdominal pain, fever, or chest pain, contact your doctor immediately. ABHISHEK ARELLANO DO Jan 12, 2021 12:06
--- NOTE | 2021-01-12 12:52 | Anesthesia-General Post-Op ---
MAC Patient Condition Mental Status/LOC: Same as Preop Cardiovascular: Satisfactory Nausea/Vomiting: Absent Respiratory: Satisfactory Pain: Controlled Complications: Absent Post Op Complications Complications None Follow Up Care/Instructions Patient Instructions None needed. Anesthesiology Discharge Order Discharge Order Patient is doing well, no complaints, stable vital signs, no apparent adverse anesthesia problems. No complications reported per nursing. SHAREE OLIVA CRNA Jan 12, 2021 12:52
--- NOTE | 2021-01-13 02:27 | OPERATIVE REPORT ---
DATE OF SERVICE: PREOPERATIVE DIAGNOSES: Rectal bleed and gastritis. POSTOPERATIVE DIAGNOSES: 1. Gastritis, esophagitis. 2. Diverticula on the right side. 3. Internal hemorrhoids. PROCEDURE: 1. EGD with biopsy. 2. Colonoscopy. SURGEON: Musa Hand DO GRAIN SHIPPER: Zay Ibrahim MS3. ANESTHESIA: IV sedation by the GLOVE BOARDER. SPECIMEN: Biopsy from the antrum, GE junction and body of stomach. BLOOD LOSS: Scant. FLUIDS: Per anesthesia. POSTOPERATIVE CONDITION: Stable. INDICATION FOR PROCEDURE: The patient is a 70-year-old male who has been having some rectal bleeding and some gastritis and needed a workup. FINDINGS: The patient had gastritis, esophagitis; and then in colon he had diverticula, mostly on the right side, not really on the left side and some internal hemorrhoids. PROCEDURE NOTE: After informed consent was obtained, the patient was brought to the endoscopy suite, placed in bed in left lateral decubitus position. He was administered IV sedation by the GLOVE BOARDER who then monitored his vitals the entire time, heart rate, blood pressure and pulse ox and the scope was inserted first placing the EGD down the mouth through the esophagus into the stomach, noted some mild gastritis. Some changes at the GE junction, pushed into the stomach, took a picture of the antrum and then pushing the duodenum, duodenum looked fine. Pulled back and did a biopsy of the antrum. Retroflexed the scope, a little bit of inflammation of the body of stomach, did another biopsy and then pulled the scope into the GE junction, did a biopsy of the GE junction, then suctioned all the air out of the stomach and then pulled the scope up the esophagus and out the mouth. Switched camera, switched gloves, went down below, started the colonoscopy, pushed in all the way about 140 cm, able to get to the cecum, took a picture of appendiceal orifice, noted the ileocecal valve and then slowly withdrew the scope insufflating the circumferential parson looking the cecum, up the ascending colon to the hepatic flexure, then down the transverse colon, splenic flexure, into the descending colon down into the sigmoid and finally into the rectum, retroflexed in rectal vault, saw some minimal internal hemorrhoids. No other obvious pathology. The scope was removed. The patient tolerated the procedure, recovered in endoscopy suite. Job ID: [id number] DocumentID: [id number] Dictated Date: 01/12/2021 19:14:40 Pin Pusher Date: 01/13/2021 02:26:59 Dictated By: DO UBALDO MOREIRA
== END ==
LOC: ENDO 10:15
PROVIDERS: ATTEND Surgery
DX: K62.5 Hemorrhage of anus and rectum (principal); K21.00 Gastro-esophageal reflux disease with esophagitis, without bleeding; K29.50 Unspecified chronic gastritis without bleeding; K57.30 Diverticulosis of large intestine without perforation or abscess without bleeding; K64.8 Other hemorrhoids; I25.10 Atherosclerotic heart disease of native coronary artery without angina pectoris; I48.91 Unspecified atrial fibrillation; E78.00 Pure hypercholesterolemia, unspecified; K43.0 Incisional hernia with obstruction, without gangrene; E66.9 Obesity, unspecified; Z68.31 Body mass index [BMI] 31.0-31.9, adult; Z79.899 Other long term (current) drug therapy; Z79.82 Long term (current) use of aspirin; Z79.01 Long term (current) use of anticoagulants; Z95.5 Presence of coronary angioplasty implant and graft

== ENCOUNTER → 2021-02-02 | Outpatient (CLI) | payer OTHER ==
[~2021-02-02] MED LIST changes: +CATHETER FLUSH 10 ML SYR IV PRN; -ESMOLOL 100 MG/10 ML (BREVIBLOC) VIAL ONE; +HOLD METFORMIN - RECEIVED CONTRAST 20 ML VIAL IV SCH; -HURRICAINE EXT TUBE (BENZOCAINE) XX PRN; +IOHEXOL 350 MG/ML 100 ML (OMNIPAQUE 350) VIAL IV ONE; -LACTATED RINGERS 1,000 ML IV ONE; -LACTATED RINGERS 1,000 ML IV STA; -MIDAZOLAM 2 MG/2 ML (VERSED) VIAL ONE; +NS 100 ML (IVPB) BAG IV ONE; -PROPOFOL INJECTION 50 ML IV ONE
[2021-02-02 10:57] LABS: BUN/CREATININE RATIO 14; CREATININE SERUM 0.84 MG/DL (0.60-1.30); GFR ESTIMATED > 60
--- NOTE | 2021-02-02 11:52 | Diagnostic Imaging Report ---
PROCEDURE: CT chest with contrast only. TECHNIQUE: Multiple contiguous axial images were obtained through the chest after administration of intravenous contrast. Auto Exposure Controls were utilized during the CT exam to meet ALARA standards for radiation dose reduction. INDICATION: Chest pain and prostate cancer. COMPARISON: There are no prior CTA chest examinations available for comparison. FINDINGS: The heart size is at the upper limits of normal or slightly enlarged. There are extensive coronary artery calcifications evident. The ascending aorta is slightly dilated measuring 4.0 x 4.2 cm in maximum AP and transverse diameters. There is no sign of a dissection. There is no defect within the pulmonary arteries to indicate a pulmonary embolus. There is no mediastinal or hilar adenopathy. The thyroid gland, where visualized, is unremarkable. The lungs are generally clear. There is no sign of failure, pneumonia, or pleural effusion to indicate an acute abnormality. There is a small 3 mm noncalcified pleural-based nodular density in the left lower lobe. This finding was not clearly evident on the previous CT abdomen/pelvis exam of 05/22/2020; however, this area was not included in its entirety on the prior exam. The sections through the upper abdomen fail to show any sign of an acute abnormality. As noted on the previous CT abdomen/pelvis exam, the incompletely healed fracture of the left 8th rib is again evident and no different. There is no acute bony abnormality noted. IMPRESSION: 1. There is no evidence for an acute cardiopulmonary abnormality. 2. There is borderline cardiomegaly and extensive coronary artery disease. 3. The ascending aorta is slightly aneurysmally dilated. 4. The small pleural-based nodule along the periphery of the left lower lobe is of uncertain etiology but most likely benign. Dictated by: Dictated on workstation # [id number]
== END ==
LOC: RAD FS 09:58
PROVIDERS: ATTEND Nurse Practitioner
DX: C61 Malignant neoplasm of prostate (principal); I25.10 Atherosclerotic heart disease of native coronary artery without angina pectoris; I71.2 Thoracic aortic aneurysm, without rupture; R91.1 Solitary pulmonary nodule
CPT/HCPCS: 36415; 71260; 82565; 84520

== ENCOUNTER → 2021-02-04 | Outpatient (CLI) | payer OTHER ==
[~2021-02-04] MED LIST changes: -CATHETER FLUSH 10 ML SYR IV PRN; -HOLD METFORMIN - RECEIVED CONTRAST 20 ML VIAL IV SCH; -IOHEXOL 350 MG/ML 100 ML (OMNIPAQUE 350) VIAL IV ONE; -NS 100 ML (IVPB) BAG IV ONE
== END | disposition home or self-care (01) ==
LOC: PREOP 05:33
PROVIDERS: ATTEND Surgery
DX: Z01.818 Encounter for other preprocedural examination (principal)

== ENCOUNTER 2022-09-15 05:30 | Outpatient (CLI) | payer OTHER ==
[~2022-09-15] VITALS: Ht 175.3 cm; Wt 94.0 kg
[~2022-09-15 05:30] MED LIST changes: -CITA40TA11 PO; +CITA40TA13 PO; -DRON400T2 PO; +DRON400T6 PO; +METH-307 PO; -NF-METHI10 PO
[2022-09-16] MEDS ORDERED: CYAN250010 PO (14:11)
== END 2022-09-16 14:35 | disposition home or self-care (01) ==
LOC: PREOP 05:30
PROVIDERS: ATTEND Surgery
DX: Z01.818 Encounter for other preprocedural examination (principal)

== ENCOUNTER 2022-09-29 09:21 | Day surgery (SDC) | payer OTHER ==
[2022-09-29] VITALS (13 sets, daily range): BP systolic 118–171; BP diastolic 74–100
[~2022-09-29] VITALS: Ht 175.3 cm; Wt 94.0 kg
[~2022-09-29 09:21] MED LIST changes: +CYAN250010 PO
[2022-09-29] MEDS ORDERED: ceFAZolin INJECTION 2,000 MG in NS (IVPB) 50 ML IV ONE (09:45)
--- NOTE | 2022-09-29 10:34 | Progress Note-Pre Operative ---
Pre-Operative Progress Note Date of Available H&P: Sep 02, 2022 Date H&P Reviewed: Sep 29, 2022 Time H&P Reviewed: 10:33 History & Physical: H&P Reviewed, Patient Examed, No changes noted Pre-Operative Diagnosis: Incarcerated incisional hernia ABHISHEK ARELLANO DO Sep 29, 2022 10:34
[2022-09-29] MEDS: LACTATED RINGERS 1,000 ML IV PRN ×2 (10:36→12:15)
[2022-09-29] MEDS ORDERED: LIDOCAINE PF 2% 5 ML (XYLOCAINE) VIAL ONE (10:40)
[2022-09-29] MEDS ORDERED: proPOfol 200 MG/20 ML (DIPRIVAN) VIAL IV ONE (10:40)
[2022-09-29] MEDS ORDERED: NEOSTIGMINE (BLOXIVERZ ) 1 MG/1ML 10 ML VIAL ONE (10:40)
[2022-09-29] MEDS ORDERED: GLYCOPYRROLATE 0.2 MG/ML (ROBINUL) 2 ML VIAL ONE (10:40)
[2022-09-29] MEDS ORDERED: fentaNYL INJ 100 MCG/2 ML AMP ONE (10:40)
[2022-09-29] MEDS ORDERED: ROCURONIUM 10 MG/ML 5 ML SYRINGE IV ONE (10:40)
[2022-09-29] MEDS ORDERED: MIDAZOLAM 2 MG/2 ML (VERSED) VIAL ONE (10:40)
[2022-09-29] MEDS ORDERED: ONDANSETRON 4 MG/2 ML (SDV) Z0FRAN ONE (10:40)
[2022-09-29] MEDS ORDERED: RIVA20TA PO (10:53)
[2022-09-29] MEDS ORDERED: BUP/EPI 0.25% 1:200,000 (MARCAINE) 30 ML VIAL ONE (11:02)
[2022-09-29] MEDS ORDERED: OMEG10005 PO (11:12)
[2022-09-29] MEDS ORDERED: SEVOFLURANE (ULTANE) 15 ML INHAL SOLN ONE (12:17)
--- NOTE | 2022-09-29 12:28 | Progress Note-Post Operative ---
Post-Operative Progess Note Surgeon (s)/Bit Bender (s) Surgeon ABHISHEK ARELLANO DO Bit Bender: Isaias Pre-Operative Diagnosis Incarcerated incisional hernia Post-Operative Diagnosis same Procedure & Operative Findings Date of Procedure 09/29/22 Procedure Performed/Findings PROCEDURE: Laparoscopic Incisional/Ventral hernia repair with mesh. COMPLICATIONS: None. INDICATIONS: The patient is a 71, male with an incarcerated incisional/ventral hernia, which has continued to increase in size and cause discomfort. The patient was explained the risk and benefits of the procedure and wished to proceed with the procedure. Consent was signed on the chart. DESCRIPTION OF PROCEDURE: The patient was taken into the operating suite, prepped and draped in sterile fashion. Surgical pause was performed. Local anesthetic was infiltrated in left upper quadrant. A #11 blade scalpel was used to make a small skin incision. Cautery was used to dissect down to the fascia, which was then scored and divided the muscle, went through the posterior sheath and a balloon trocar was inserted into the abdomen. The abdomen was then insufflated. Omentum was stuck in the incisional/ventral hernia; picture taken. A 5 mm trocar was placed in the r ight lower quadrant and a 5 mm trocar was placed in left lower quadrant. The omentum was removed from the defect and the defect was then closed using 0 Vicryl with a Héctor- Jenny. Closed with two simple sutures. Echo Ventralight mesh (4 1/2 inch rou nd mesh) was then inserted in the abdomen grabbed through the stab incision. The balloon was inflated on the mesh. Circumferential tacks were placed with a SecureStrap Tacker. The balloon was then removed and inner crown was created as well. The mesh was tacked with pressure being decreased. The 12 mm fascial defect was then closed using 0 Vicryl. The abdomen was then desufflated,the trocars were removed. The skin was then closed using 4-0 Monocryl in a running subcuticular fashion. The abdomen was washed and dried and Skin Affix was placed over the incisions. The patient tolerated procedure well without any complications. He was taken to recovery room in stable condition. Dr. Esparza assisted on this case helping to make incisions, close incisions, identify anatomy hold anatomy out of the way and tack up the mesh. Anesthesia Type GET Estimated Blood Loss Estimated blood loss (mL): scant Specimens/Packing Specimens Removed none ABHISHEK ARELLANO DO Sep 29, 2022 12:28
--- NOTE | 2022-09-29 12:44 | Anesthesia-General Post-Op ---
General Patient Condition Mental Status/LOC: Same as Preop Cardiovascular: Satisfactory Nausea/Vomiting: Absent Respiratory: Satisfactory Pain: Controlled Complications: Absent Post Op Complications Complications None Follow Up Care/Instructions Patient Instructions None needed. Anesthesia/Patient Condition Patient Condition Patient is doing well, no complaints, stable vital signs, no apparent adverse anesthesia problems. No complications reported per nursing. TERESA VALERIO CRNA Sep 29, 2022 12:43
[2022-09-29] MEDS ORDERED: morphine INJ 10 MG/ML 1ML (SYR OR VIAL) IVP ONE (12:45)
[2022-09-29] MEDS ORDERED: ONDANSETRON 4 MG/2 ML (SDV) Z0FRAN IVP PRN ×2 (12:45→13:15)
[2022-09-29] MEDS ORDERED: MEPERIDINE (DEMEROL) INJ 50 MG/ML IVP ONE (12:45)
[2022-09-29] MEDS ORDERED: PROMETHAZINE INJ 25 MG/ML (PHENERGAN) AMP IVP ONE (12:45)
[2022-09-29] MEDS ORDERED: HYDROmorphone 2 MG/ML VIAL (DILAUDID) IV ONE (12:45)
[2022-09-29] MEDS ORDERED: morphine INJ 10 MG/ML 1ML (SYR OR VIAL) ONE (12:48)
[2022-09-29] MEDS: HYDROcodone/APAP 5 MG/325 MG (LORTAB) TAB PO PRN ×3 (14:52→23:57)
[2022-09-29] MEDS: LACTATED RINGERS 1,000 ML IV SCH ×2 (16:37→23:58)
[2022-09-29] MEDS: ceFAZolin INJECTION 2,000 MG in NS (IVPB) 50 ML IV SCH (18:05)
[2022-09-30] MEDS: ceFAZolin INJECTION 2,000 MG in NS (IVPB) 50 ML IV SCH (03:09)
[2022-09-30 03:21] VITALS: BP 135/72
[2022-09-30] MEDS: HYDROcodone/APAP 5 MG/325 MG (LORTAB) TAB PO PRN ×2 (04:11→08:18)
[2022-09-30 07:43] VITALS: BP 142/76
[2022-09-30] MEDS: LACTATED RINGERS 1,000 ML IV SCH (08:23)
[2022-09-30] MEDS ORDERED: PANTOPRAZOLE 40 MG (PROTONIX) VIAL IVP SCH (09:00)
[2022-09-30] MEDS ORDERED: ACHD5005 PO (10:08)
--- NOTE | 2022-09-30 10:10 | Discharge Inst-Surgical ---
Discharge Inst-Surgical Depart Medication/Instructions New, Converted or Re-Newed RX: Transmitted to Pharmacy Patient Instructions Follow up Appt: Make appointment for 1 week. [phone] Instructions: No lifting greater than 20 pounds. No strenuous activity. May shower in 24 hours, no tub bath or soaking. Use incentive spirometer at home as directed. No Smoking Skin/Wound Care: May remove bandages in am. You need to leave the Dermabond on incision it will fall off on it's own. Symptoms to Report: Appetite Changes, Extremity Discoloration, Numbness/Tingling, Swelling Increased, Bleeding Excessive, Eyesight Changes, Pain Increased, Urine Color Change, Constipation(Persistent), Fever over 101 degree F, Pain/Pressure in chest, Urinating Difficulty, Cough Up/Vomit Blood, Heart Beat Irreg/Pounding, Pain/Pressure in jaw, Cramps in feet or legs, Lightheadedness, Pain/Pressure in shoulder, Diarrhea(Persistent), Memory Changes Suddenly, Questions/Concerns, Weight gain consecutive days, Dizziness/Fainting, Nausea/Vomiting, Shortness of Breath, Weight gain over 2 pounds If questions or concerns contact your physician Or seek help at emergency department. Activity Activity as Tolerated: Yes Activity Instructions: Avoid Stress to Incision Driving Instructions: You May Drive (if you can drive normally and not be on narcotic pain meds) Diet Discharge Diet: No Restrictions (increase fluids) Diet After 24 Hours: Clear Liquid if Nauseous If Any Problems/Questions/Issu: Contact Your Physician, Go to Emergency Room Skin/Wound Care Infection Signs and Symptoms: Increased Redness, Foul Odor of Wound, Increased Drainage, Skin Itchy or Has a Rash, Increased Swelling, Temperature Above 101 F Bathing Instructions: Shower Stitches/[place]/Dermabond Dis: Dermabond ABHISHEK ARELLANO DO Sep 30, 2022 10:10
--- NOTE | 2022-09-30 10:13 | Progress Note - Surgery ---
Subjective Time Seen by a Provider: 09:30 Subjective/Events-last exam Pt seen and examined, states he is having pain but controlled with meds. He is worried about getting up from lying down, "it pulls real bad, when I sit up". Review of Systems General: No Chills, No Night Sweats Pulmonary: No Dyspnea, No Cough Cardiovascular: No: Chest Pain, Palpitations Gastrointestinal: Abdominal Pain; No: Nausea, Vomiting Objective Exam Vital Signs Date Time Temp Pulse Resp B/P (MAP) Pulse Ox O2 Delivery O2 Flow Rate FiO2 09/30/22 08:48 36.8 09/30/22 08:18 36.8 09/30/22 08:11 95 Room Air 0.00 09/30/22 07:43 36.8 64 20 142/76 (98) 95 Room Air 09/30/22 03:21 36.6 73 16 135/72 (93) 97 Room Air 09/29/22 23:50 37.0 81 16 118/79 (92) 93 Room Air 09/29/22 20:17 Room Air 09/29/22 19:40 36.9 78 20 151/78 (102) 93 Room Air 09/29/22 16:00 36.6 80 20 158/91 (113) 95 Nasal Cannula 1.00 09/29/22 15:59 36.6 80 20 158/91 (113) 95 Nasal Cannula 1.00 09/29/22 14:39 36.8 68 22 164/89 (114) 95 Nasal Cannula 2.00 09/29/22 14:20 95 Nasal Cannula 2.00 09/29/22 13:50 Nasal Cannula 2.00 09/29/22 13:40 Nasal Cannula 2.00 09/29/22 13:40 36.7 16 170/97 (121) 95 Nasal Cannula 2.00 09/29/22 13:30 14 167/100 (122) 95 OxyMask 2.00 09/29/22 13:25 OxyMask 2.00 09/29/22 13:20 14 169/99 (122) 95 OxyMask 2.00 09/29/22 13:10 OxyMask 2.00 09/29/22 13:10 14 170/98 (122) 96 OxyMask 2.00 09/29/22 13:00 14 171/99 (123) 97 OxyMask 4.00 09/29/22 12:55 OxyMask 6.00 09/29/22 12:50 16 159/91 (113) 99 OxyMask 6.00 09/29/22 12:40 OxyMask 8.00 09/29/22 12:40 36.3 16 124/74 (91) 96 OxyMask 8.00 I & O 09/30/22 07:00 Intake Total 3675 ml Output Total 1225 ml Balance 2450 ml Capillary Refill : General Appearance: No Apparent Distress Respiratory: Lungs Clear, Normal Breath Sounds, No Accessory Muscle Use, No Respiratory Distress Cardiovascular: Regular Rate, Rhythm, No Murmur Gastrointestinal: soft, tenderness (midline above umbilicus and at incisions), other (incisions are c/d/i) Results Lab Microbiology 09/29/22 MRSA Screen - Final, Complete MRSA not isolated Assessment/Plan Assessment/Plan Assessment/Plan S/P Lap incisional/ventral herniarraphy with mesh D/C IV and D/C home. Pt has some pain meds, will be able to waste picker RX tomorrow. Told to ambulate and use IS at home. ABHISHEK ARELLANO DO Sep 30, 2022 10:13
[2022-09-30 12:08] VITALS: BP 142/76
== END 2022-09-30 11:11 | disposition home or self-care (01) ==
LOC: SDC 09:21 → 4TH 13:55 → SDC 09-30 11:11
PROVIDERS: ATTEND Surgery
DX: K43.0 Incisional hernia with obstruction, without gangrene (principal)
CPT/HCPCS: 87081